=== PATIENT | female | born 1965 | race Caucasian/White ===

== ENCOUNTER 2018-06-16 11:42 | Emergency (ER) | payer OTHER ==
[~2018-06-16] VITALS: Ht 154.9 cm; Wt 67.6 kg
[~2018-06-16 11:42] MED LIST: FLEXERIL PO; LISINOPRIL20 MG PO; MEDROLDOSEPACK PO; NORCO 5-325 TA1 EACH PO; NORFLEX100 MG PO; PERCOCET 5-3251 EACH PO; PREDNISONE 20 M20 M1 PO; PREDNISONE 20 M20 MG PO
[2018-06-16 11:57] VITALS: BP 171/99
[2018-06-16] MEDS ORDERED: CLEOCIN HCL150 MG PO (12:29)
[2018-06-16] MEDS ORDERED: HYDROCODONE-AP1 EAC6 PO (12:29)
== END 2018-06-16 12:50 | disposition home or self-care (01) ==
LOC: ER 11:42
DX: K04.7 Periapical abscess without sinus (principal); K13.79 Other lesions of oral mucosa; K08.9 Disorder of teeth and supporting structures, unspecified; I10 Essential (primary) hypertension; M32.9 Systemic lupus erythematosus, unspecified; Z88.6 Allergy status to analgesic agent; Z88.8 Allergy status to other drugs, medicaments and biological substances; Z88.0 Allergy status to penicillin